=== PATIENT | male | born 1950 | race Caucasian/White ===

== ENCOUNTER 2018-11-30 20:23 | Emergency (ER) | payer SELFPAY ==
[~2018-11-30] VITALS: Ht 167.6 cm; Wt 90.9 kg
[2018-11-30 20:27] VITALS: Ht 167.6 cm; Wt 90.9 kg
== END 2018-11-30 21:15 | disposition left against medical advice (07) ==
LOC: FTE 20:23
DX: Z53.21 Procedure and treatment not carried out due to patient leaving prior to being seen by health care provider (principal)